=== PATIENT | female | born 1960 | race Two or more races ===

== ENCOUNTER 2017-05-13 21:16 | Emergency (ER) | payer OTHER ==
[~2017-05-13] VITALS: Ht 154.9 cm; Wt 65.8 kg
[~2017-05-13 21:16] MED LIST: DICLOFENAC SODI50 MG PO; ENALAPRIL MALEAT5 MG; LIPITOR40 MG; SYNTHROID75 MCG; ZANTAC150 M3
== END 2017-05-13 22:48 | disposition home or self-care (01) ==
LOC: ER 21:16
DX: I10 Essential (primary) hypertension (principal)